=== PATIENT | female | born 1970 | race Caucasian/White ===

== ENCOUNTER → 2024-01-20 | Outpatient (CLI) | payer BC, SELFPAY ==
[2024-01-20 09:27] LABS: Glucose Estimated Average 243 mg/dL (80-131); Hemoglobin A1C 10.1 % Hgb (4.8-6.0)
[2024-01-20 09:36] LABS: Albumin, Serum 4.5 gm/dL (3.5-5.0); Anion Gap 6 (7-16); BUN/Creatinine Ratio 15 Ratio (12-20); Blood Urea Nitrogen 12 mg/dL (9-23); Calcium 9.7 mg/dL (8.3-10.6); Calcium (Corrected) 9.7 mg/dL (8.5-10.1); Carbon Dioxide 27.1 mMol/L (20.0-31.0); Cardiac Risk Estimate 6.5 RATIO (3.7-5.6); Chloride 105 mMol/L (98-107); Cholesterol 214 mg/dL (132-200); Creatinine (Component) 0.8 mg/dL (0.6-1.3); Glucose 231 mg/dL (74-106); HDL Cholesterol 33 mg/dL (40-60); LDL Cholesterol,Calculated 141 mg/dL (0-130); Osmolality,Calculated 282 (275-295); Phosphorous 3.1 mg/dL (2.4-5.1); Potassium 4.3 mMol/L (3.4-5.1); Sodium 138 mMol/L (136-145); Triglycerides 200 mg/dL (30-150); eGFR > 60 See Note
== END | disposition home or self-care (01) ==
LOC: COPL 08:18
PROVIDERS: PCP Internal Medicine; Referring Provider Internal Medicine; Visit Provider Internal Medicine
DX: I10 Essential (primary) hypertension (principal); E11.65 Type 2 diabetes mellitus with hyperglycemia
CPT/HCPCS: 36415; 80061; 80069; 83036

== ENCOUNTER → 2024-05-13 | Outpatient (CLI) | payer BC, SELFPAY ==
[2024-05-13 10:47] LABS: Glucose Estimated Average 192 mg/dL (80-131); Hemoglobin A1C 8.3 % Hgb (4.8-6.0)
[2024-05-13 10:59] LABS: Creatinine MALB Rnd Ur 86 mg/dL (30-125)
[2024-05-13 11:00] LABS: Microalbumin, Random Urine < 3 mg/L (0-300)
[2024-05-13 11:44] LABS: Alanine Aminotransferase 12 U/L (10-49); Albumin, Serum 4.4 gm/dL (3.5-5.0); Albumin/Globulin Ratio 2.1 (1.2-2.2); Alkaline Phosphatase 90 U/L (46-116); Anion Gap 7 (7-16); Aspartate Amino Transferase 11 U/L (0-34); BUN/Creatinine Ratio 16 Ratio (12-20); Bilirubin,Total 0.6 mg/dL (0.3-1.2); Blood Urea Nitrogen 11 mg/dL (9-23); Calcium 9.8 mg/dL (8.3-10.6); Calcium (Corrected) 9.8 mg/dL (8.5-10.1); Carbon Dioxide 27.3 mMol/L (20.0-31.0); Cardiac Risk Estimate 4.8 RATIO (3.7-5.6); Chloride 106 mMol/L (98-107); Cholesterol 183 mg/dL (132-200); Creatinine (Component) 0.7 mg/dL (0.6-1.3); Free T4 (Free Thyroxine) 1.63 ng/dL (0.89-1.76); Globulin 2.1 gm/dL (2.3-3.5); Glucose 152 mg/dL (74-106); HDL Cholesterol 38 mg/dL (40-60); LDL Cholesterol,Calculated 116 mg/dL (0-130); Osmolality,Calculated 281 (275-295); Potassium 4.6 mMol/L (3.4-5.1); Sodium 140 mMol/L (136-145); Total Protein 6.5 gm/dL (5.7-8.2); Triglycerides 146 mg/dL (30-150); eGFR > 60 See Note
[2024-05-13 12:02] LABS: Thyroid Stimulating Hormone 0.15 uIU/mL (0.55-4.78)
== END | disposition home or self-care (01) ==
LOC: COPL 09:22
PROVIDERS: PCP Internal Medicine; Referring Provider Internal Medicine; Visit Provider Internal Medicine
DX: I10 Essential (primary) hypertension (principal); E11.65 Type 2 diabetes mellitus with hyperglycemia
CPT/HCPCS: 36415; 80053; 80061; 82043; 82570; 83036; 84439; 84443